=== PATIENT | female | born 1990 | race Caucasian/White ===

== ENCOUNTER → 2024-08-14 | Day surgery (SDC) | payer OTHER ==
[~2024-08-14] MED LIST: ACETAMINOPHEN 1000 MG/100 ML 100 ML IV ONE; ATIVAN1 MG PO; DEXAMETHASONE SOD PHOS 10 MG/1 ML VIAL ONE; DEXAMETHASONE SOD PHOS INJ 4 MG/ML SDV ONE; FAMOTIDINE 20 MG/2 ML VIAL IV ONE; FENTANYL CITRATE/PF 100MCG/2 ML INJ ONE; KETOROLAC TROMETHAMINE 30 MG/ML VIAL ONE; LEVOTHYROXINE50 MCG PO; LIDOCAINE HCL 2% LOCAL INJ 5 ML SDV VIAL INJ ONE; OFLOXACIN 0.3% (OTIC SOL) 5 ML BTL ONE; ONDANSETRON HCL INJ 2MG/ML 2ML 2 MG/ML VIAL ONE; PROPOFOL IV EMULSION 10 MG/ML 20 ML VIAL ONE; SODIUM CHLORIDE 0.9% INJ 10 ML VIAL ONE; VYVANSE70 MG PO
[2024-08-14] MEDS: LACTATED RINGER'S 1,000 ML ONE (06:48)
[2024-08-14 09:17] VITALS: TEMP 97.1
[2024-08-14] MEDS: ACETAMINOPHEN 1000 MG/100 ML IV ONE (09:41)
[2024-08-14] MEDS: FENTANYL CITRATE/PF 100MCG/2 ML INJ IV ONE (09:50)
[2024-08-14] MEDS: ACETAMINOPHEN/CODEINE 300MG - 30MG TAB ONE (10:25)
[2024-08-14 10:30] VITALS: BP 105/66; PULSE 70; RESP 18; O2SAT 99
== END | disposition home or self-care (01) ==
LOC: OR 06:16 → EDSEX 07:30
PROVIDERS: ATTEND Otolaryngology Otolaryngology/Facial Plastic Surgery
DX: H91.21 Sudden idiopathic hearing loss, right ear (principal); H66.90 Otitis media, unspecified, unspecified ear; H69.80 Other specified disorders of Eustachian tube, unspecified ear; E03.9 Hypothyroidism, unspecified; Z79.899 Other long term (current) drug therapy; Z86.16 Personal history of COVID-19
CPT/HCPCS: 69436; 81025; J0131; J1100; J1885; J2003; J2405; J2704; J3010; J7121